=== PATIENT | female | born 1950 | race African-American/Black ===

== ENCOUNTER 2018-05-17 06:38 | Emergency (ER) | payer MEDICARE, OTHER ==
[~2018-05-17] VITALS: Ht 162.6 cm; Wt 60.0 kg
[~2018-05-17 06:38] MED LIST: ATOR20TA PO; ESTR1TAB17 PO; FLUP10TA2 PO; METF10004 PO; PALI9TAB3 PO; RISP1TAB26 PO; TRAZ-129 PO; ZOLP5TAB8 PO
[2018-05-17] MEDS ORDERED: BACITRACIN ZINC OINT UDPKT TOP ONE (09:00)
[2018-05-17 09:16] LABS: BASOPHILS % 0.5 % (0.0-2.0); EOSINOPHILS % 0.1 % (0.0-5.0); HEMOGLOBIN. 15.3 g/dL (12.0-16.0); LYMPHOCYTES % 21.7 % (20.0-50.0); MEAN CORPUSCULAR HEMOGLOBIN 31.1 pg (28.0-32.0); MEAN CORPUSCULAR VOLUME 91.9 fL (81.0-99.0); NEUTROPHILS % 73.7 % (40.0-76.0); PLATELET 146 x1000/uL (130-400); RED CELL DISTRIBUTION WIDTH 12.9 % (11.6-14.6)
[2018-05-17 09:20] LABS: INR 1.2
[2018-05-17 09:21] LABS: CHLORIDE 107 mEq/L (98-107)
[2018-05-17 09:53] LABS: CLARITY URINE CLEAR (CLEAR); COLOR URINE YELLOW (YELLOW); KETONES URINE 3+ (NEGATIVE); LEUKOCYTE ESTERASE URINE NEGATIVE (NEGATIVE); NITRITE URINE NEGATIVE (NEGATIVE); OCCULT BLOOD URINE NEGATIVE (NEGATIVE); PROTEIN URINE NEGATIVE (NEGATIVE); SPECIFIC GRAVITY URINE 1.022 (1.005-1.030)
[2018-05-17 12:44] VITALS: BP 127/74
== END 2018-05-17 12:46 | disposition home or self-care (01) ==
LOC: ER 07:44
DX: S90.425A Blister (nonthermal), left lesser toe(s), initial encounter (principal); S90.424A Blister (nonthermal), right lesser toe(s), initial encounter; D72.829 Elevated white blood cell count, unspecified; R79.89 Other specified abnormal findings of blood chemistry; R79.1 Abnormal coagulation profile; E11.9 Type 2 diabetes mellitus without complications; I10 Essential (primary) hypertension; X58.XXXA Exposure to other specified factors, initial encounter; Y93.89 Activity, other specified; Y92.89 Other specified places as the place of occurrence of the external cause; Y99.8 Other external cause status
CPT/HCPCS: 36415; 80053; 81003; 84484; 85025; 85610; 93005; 99285